=== PATIENT | female | born 1980 | race Caucasian/White ===

== ENCOUNTER 2021-05-26 11:59 | Emergency (ER) | payer BC ==
[~2021-05-26] VITALS: Ht 165.1 cm; Wt 83.9 kg
[2021-05-26 13:09] VITALS: BP 140/77
--- NOTE | 2021-05-26 13:09 | NUR ---
Patient discharged to home in stable condition. Written and verbal after care instructions given. Patient verbalizes understanding of instruction.
== END 2021-05-26 13:10 | disposition home or self-care (01) ==
LOC: ER 12:09
DX: O99.513 Diseases of the respiratory system complicating pregnancy, third trimester (principal); R05.9 Cough, unspecified; Z3A.39 39 weeks gestation of pregnancy; O09.513 Supervision of elderly primigravida, third trimester
CPT/HCPCS: 87426; 99283; C9803